=== PATIENT | female | born 1985 | race Two or more races ===

== ENCOUNTER 2024-05-14 05:36 | Emergency (ER) | payer OTHER ==
[~2024-05-14] VITALS: Ht 160 cm; Wt 59.0 kg
[2024-05-14 05:36] VITALS: BP 126/82; PULSE 82; RESP 18; O2SAT 97
== END 2024-05-14 06:45 | disposition left against medical advice (07) ==
LOC: EDBD 05:36 → ER 05:36
DX: S01.01XA Laceration without foreign body of scalp, initial encounter (principal); Z53.21 Procedure and treatment not carried out due to patient leaving prior to being seen by health care provider; Y93.89 Activity, other specified; Y92.89 Other specified places as the place of occurrence of the external cause; Y99.8 Other external cause status